=== PATIENT | female | born 2000 | race Two or more races ===

== ENCOUNTER → 2024-03-21 | Outpatient (CLI) | payer MEDICAID, SELFPAY ==
--- NOTE | 2024-03-21 09:00 | XR_ITS ---
Examination: Very minimal with KUB Fluoroscopy 19 spot fluoroscopic films of the colon Exam date and time: March 21, 2024 0947 hours INDICATIONS: Incomplete colonoscopy January 2024 TECHNIQUE AND FINDINGS: Stool is present in the colon on the preliminary film precluding double contrast study Colon filled in retrograde manner to the cecum with reflux into terminal ileum and appendix Haustral pattern unremarkable No constricting colonic lesion No rectal ulcerations Mucosal detail appears satisfactory on the postevacuation films IMPRESSION: No colonic lesion identified Fluoroscopy 0.30 minutes 19 spot fluoroscopic films
== END | disposition home or self-care (01) ==
PROVIDERS: PCP Registered Nurse; Referring Provider Internal Medicine Gastroenterology; Visit Provider Internal Medicine Gastroenterology
DX: K92.1 Melena (principal)
CPT/HCPCS: 74280

== ENCOUNTER 2024-05-19 10:01 | Emergency (ER) | payer MEDICAID, SELFPAY ==
[2024-05-19 10:11] VITALS: BP 120/77; PULSE 80; RESP 18; TEMP 37; O2SAT 97; BMI 23.6
--- NOTE | 2024-05-19 10:57 | PD.EDABDPN ---
ED Abdominal Pain RME/HPI General Chief Complaint: Abdominal Pain Stated complaint: Abdominal pain n/vomiting x 2d Time seen by provider: 05/19/24 10:57 Arrival date/time: 05/19/24 10:01 RME / HPI RME / HPI narrative: DR. MACIEL MAIN ED EVALUATION: 24 year old female presents to the Emergency Department with complaint of epigastric and left upper abdominal pain onset 3 weeks. Pain is described as sharp and rated mild to moderate. Associated symptoms include subjective fever yesterday but not today. Patient also reports nausea and vomiting today. Patient has been having chronic abdominal pain all 2023, she had an endoscopy and colonoscopy in 2023, which were negative. She also had a stool test and was diagnosed with H. Pylori. She also had a narrow esophagus and had an esophagus dilatation. She also had a cholecystectomy 12/2023 and since then she was better until 3 weeks ago with left-sided abdominal pain. Patient denies any tobacco, alcohol, or substance use. No marijuana use or energy drinks. Patient reports normal menses, last one was 05/09/2024 and normal. Related Data Allergies Allergy/AdvReac Type Severity Reaction Status Date / Time amoxicillin Allergy Intermediate Hives Verified 05/19/24 10:07 azithromycin Allergy Intermediate Hives Verified 05/19/24 10:07 fluconazole Allergy Intermediate blisters Verified 05/19/24 10:07 Review of Systems Review of Systems Systems Reviewed: All systems reviewed, normal except as documented Past Medical History Past Medical History CARDIAC: Negative Congestive Heart Failure RESPIRATORY: Positive Chronic Obstructive Pulmonary Disease (COPD) and Asthma GENITOURINARY: Negative Renal Disease ENDOCRINE: Negative Diabetes Mellitus Type 1 or Diabetes Mellitus Type 2 Social History SMOKING STATUS: Never smoker SUBSTANCE USE: does not use ALCOHOL: Never ED Exam Narrative Physical exam: GENERAL APPEARANCE: AxOx4, generally well-appearing, no acute distress. HEENT: NC, AT. MMM. EOMI, clear conjunctiva, oropharynx clear. NECK: Supple without lymphadenopathy. No stiffness or restricted ROM. HEART: Normal rate and regular rhythm, normal S1/S1, no m/r/g LUNGS: CTAB, moving air well. No crackles or wheezes are heard. ABDOMEN: There is some left upper and left mid abdomen pain and mild tenderness. Nondistended with good bowel sounds heard. BACK: No midline C/T/L spine pain or deformity, No CVAT, no obvious deformity. EXTREMITIES: Without cyanosis, clubbing or edema. MUSCULOSKELETAL: FROM of all major joints, no chest tenderness NEUROLOGICAL: Grossly nonfocal. Alert and oriented, moving all 4 extremities. CN not formally tested but appear grossly intact. Observed to ambulate with normal gait. Skin: Warm and dry without any rash. Course Quality Measures none Orders Category Date Time Status Lidocaine 2% Viscous [Xylocaine 2% Viscous] Med 05/19/24 10:57 Once 15 ml PO X1 ONE mg Hyd/Al Hyd/Louise Susp [Maalox Susp] Med 05/19/24 10:57 Once 30 ml PO X1 ONE Vital Signs Vital signs: Vital Signs Temperature 98.6 F 05/19/24 10:11 Pulse Rate 80 05/19/24 10:11 Respiratory Rate 18 05/19/24 10:11 Blood Pressure 120/77 05/19/24 10:11 Pulse Oximetry (%) 97 05/19/24 10:11 Oxygen Delivery Method Room Air 05/19/24 10:11 Abdominal Pain MDM MDM Narrative MDM Narrative:: IVika am scribing for and in the presence of Dr. Maciel. Patient data External records reviewed:: [facility] previous records (Reviewed last ED visit dated 10/16/19, discharged with the following: Acute upper respiratory infection) Clinical information provided by:: patient Social determinants that could affect healthcare access:: none Patient has the following chronic illnesses:: Chronic GI problems see HPI for details. How is presenting disease/condition affected by chronic disease/condition?: exacerbated by Evaluation data The following diagnostics were reviewed and interpreted by me:: other (specify) (none) Lab and/or radiology exams considered but not ordered:: none Interpretation Summary: n/a Medications / Prescriptions Medications or Prescriptions considered but not ordered:: none Medication administrations:: Medication Administration History Discontinued Medications Al Hydrox/Mg Hydrox/Simethicone (Mg Hyd/Al Hyd/Louise (Maalox Reg) Susp 30 Ml Udc) 30 ml PO X1 ONE Stop: 05/19/24 10:58 Lidocaine HCl (Lidocaine Viscous 2% 15 Ml Udc) 15 ml PO X1 ONE Stop: 05/19/24 10:58 see above Consultations Consultation(s) initiated? (list below): No Diagnosis Differential diagnosis abdominal pain: abdominal pain and other (GERD, gastritis, chronic abdominal pain) Most likely diagnosis given after review of the tests above:: Abdominal pain, chronic, epigastric Admission Indicated Admission indicated?: not indicated Admission Request Was there a request for admission?: No Disposition Plan Disposition Plan: Discharge Discharge Attestation Discharge Attestation: The patient and all family members were given an opportunity to ask questions and understood the discharge instructions. Discharge instructions specifically effects, indications for sooner follow up or return to the emergency department, and the expected course of current diagnosis. Patient condition: Stable Discharge Plan Plan Patient Disposition: HOME (Self Care) Problem List Clinical Impression: Abdominal pain, chronic, epigastric Patient/Caregiver Discharge Instructions Education Materials: ED Epigastric Pain (Uncertain Cause) Additional Instructions: You were given a gastritis treatment in emergency department. If this seems to help I recommend you go to the pharmacy to sweet pickled fruit maker some [id number] famotidine (Pepcid) 20 mg twice a day and plan to take it for the next 7 to 10 days straight. You can continue with your normal follow-up with your primary care doctor on Tuesday. Please eat a healthy diet avoiding greasy and sugary foods. Feel free return to the emergency department symptoms worsen or if you notice any new, concerning issues. Print Language: Slovak Stand Alone Forms: Carolyn Award Info., Patient Portal Info Letter
[2024-05-19] MEDS: LIDOCAINE VISCOUS 2% 15 ML UDC PO (11:47)
[2024-05-19] MEDS: MG HYD/AL HYD/SIME (Maalox Reg) SUSP 30 ML UDC PO (11:48)
[2024-05-19 12:00] VITALS: BP 133/86; PULSE 73; RESP 18; TEMP 37.1; O2SAT 98
== END 2024-05-19 12:06 | disposition home or self-care (01) ==
PROVIDERS: Emergency Provider Emergency Medicine; PCP Registered Nurse
DX: R10.13 Epigastric pain (principal)
CPT/HCPCS: 99282; J3490; A9270

== ENCOUNTER 2024-07-29 15:13 | Emergency (ER) | payer MEDICAID, SELFPAY ==
[2024-07-29 15:14] VITALS: BMI 23.8
[2024-07-29 15:24] VITALS: BP 134/76; PULSE 87; RESP 20; TEMP 37.1; O2SAT 99; BMI 23.6
--- NOTE | 2024-07-29 15:56 | EDNOTE_ITS ---
ED Asthma RME/HPI General Chief Complaint: Asthma Stated Complaint: COUGH WITH CHEST PAIN Time Seen by Provider: 07/29/24 15:33 Arrival date/time: 07/29/24 15:13 RME / HPI RME / HPI Narrative: 24-year-old female patient presents to the ED with a complaint of cough, shortness of breath, pain in her chest from coughing, runny nose and nasal congestion, sore throat from coughing, sinus pressure and drainage down the back of her throat. This has been an ongoing issue since her diagnosis with asthma. She was seen at [facility] and told she has allergies but not given any allergy medications. She is not trying any [id number]-[id number] medications. She has had some night sweats but no documented fever or chills. She denies nausea or vomiting. She denies ear pain. Related Data Previous Rx's ?Medication ?Instructions ?Recorded cetirizine 10 mg tablet (Zyrtec) 10 mg PO QDAY #30 tab s 07/29/24 fluticasone propionate 50 2 spray intranasal QDAY 30 d ays 07/29/24 mcg/actuation nasal #10 mL spray,suspension (Flonase Allergy Relief) montelukast 10 mg tablet 10 mg PO QPM #30 tabs (Singulair) Allergies Allergy/AdvReac Type Severity Reaction Status Date / Time amoxicillin Allergy Intermediate Hives Verified 07/29/24 15:16 azithromycin Allergy Intermediate Hives Verified 07/29/24 15:16 fluconazole Allergy Intermediate blisters Verified 07/29/24 15:16 Review of Systems Review of Systems Systems Reviewed: All systems reviewed, normal except as documented Past Medical History Past Medical History CARDIAC: Negative Congestive Heart Failure RESPIRATORY: Positive Chronic Obstructive Pulmonary Disease (COPD) and Asthma GENITOURINARY: Negative Renal Disease ENDOCRINE: Negative Diabetes Mellitus Type 1 or Diabetes Mellitus Type 2 Social History SMOKING STATUS: Never smoker SUBSTANCE USE: does not use ED Exam Narrative Physical exam: Alert and oriented, very pleasant 24-year-old female, no acute distress. No respiratory distress is noted. Regular rate and rhythm without murmurs, lungs reveal scattered wheezing throughout. No accessory muscle usage. Blood pressure 134/76, pulse 87, respirations 20 and nonlabored, temperature 98.7, O2 sat 99% on room air. Course Quality Measures none Vital Signs Vital signs: Vital Signs Temperature 98.7 F 07/29/24 15:24 Pulse Rate 87 07/29/24 15:24 Respiratory Rate 20 07/29/24 15:24 Blood Pressure 134/76 H 07/29/24 15:24 Pulse Oximetry (%) 99 07/29/24 15:24 Oxygen Delivery Method Room Air 07/29/24 15:24 Asthma Patient data External records reviewed:: None Clinical information provided by:: patient Social determinants that could affect healthcare access:: none Patient has the following chronic illnesses:: Asthma How is presenting disease/condition affected by chronic disease/condition?: exacerbated by Evaluation data The following diagnostics were reviewed and interpreted by me:: radiology exam(s) Lab and/or radiology exams considered but not ordered:: N/A Interpretation Summary: XR Chest: FINDINGS: Normal heart size. The lungs are clear. The osseous structures are intact. IMPRESSION: No active disease Medications / Prescriptions Medications or Prescriptions considered but not ordered:: N/A Medication administrations:: Decadron 10 mg p.o. and DuoNeb Consultations Consultation(s) initiated? (list below): No Diagnosis Differential diagnosis asthma: Acute exacerbation, Acute asthmatic bronchitis and Pneumonia Most likely diagnosis given after review of the tests above:: Acute asthma exacerbation Admission Indicated Admission indicated?: not indicated Explain why admission is indicated or not indicated:: Patient is stable for discharge. Admission Request Was there a request for admission?: No Disposition Plan Disposition Plan: Discharge Discharge Attestation Discharge Attestation: The patient and all family members were given an opportunity to ask questions and understood the discharge instructions. Discharge instructions specifically effects, indications for sooner follow up or return to the emergency department, and the expected course of current diagnosis. Patient condition: Stable Discharge Plan Plan Patient Disposition: HOME (Self Care) Discharge Disposition comment: Stable and improved Prescriptions/Referrals Prescriptions/Med Rec: New montelukast [Singulair] 10 mg tablet 10 mg PO QPM Qty: 30 0RF fluticasone propionate [Flonase Allergy Relief] 50 mcg/actuation spray,suspension 2 spray intranasal QDAY 30 Days Qty: 10 0RF Rx Instructions: administer into each nostril cetirizine [Zyrtec] 10 mg tablet 10 mg PO QDAY Qty: 30 0RF Referrals: No Primary/Family,Physician [Primary Care Provider] - In 1 week Problem List Clinical Impression: Asthma with acute exacerbation, Chronic rhinosinusitis Patient/Caregiver Discharge Instructions Education Materials: Understanding Asthma Triggers, ED Asthma, Acute (Adult), Asthma Additional Instructions: Follow-up with your primary care physician in 24 to 48 hours. Return to the ED for any new or worsening symptoms. Print Language: Chinese Stand Alone Forms: Carolyn Award Info., Patient Portal Info Letter PA/ECONOMIC DEVELOPMENT SPECIALIST Supervising Physician PA/ECONOMIC DEVELOPMENT SPECIALIST Supervising Physician: Dr. Ghosh
--- NOTE | 2024-07-29 15:59 | XR_ITS ---
Examination: PA lateral chest 2 views TECHNIQUE: Upright PA lateral chest 2 views Date and time: July 29, 2024 1629 hours INDICATIONS: Coughing and shortness of breath beginning 3 days ago FINDINGS: Normal heart size. The lungs are clear. The osseous structures are intact IMPRESSION: No active disease
[2024-07-29] MEDS: DEXAMETHASONE SOD PHOS INJ 10 MG/ML VIAL PO (16:10)
[2024-07-29] MEDS: ALBUTEROL/IPRATROPIUM (Duoneb) RT SOL 3 ML NEBU INH (16:13)
[2024-07-29 16:15] VITALS: PULSE 103; RESP 20; O2SAT 100
== END 2024-07-29 18:39 | disposition home or self-care (01) ==
PROVIDERS: Emergency Provider Emergency Medicine
DX: J45.901 Unspecified asthma with (acute) exacerbation (principal); J32.9 Chronic sinusitis, unspecified
CPT/HCPCS: 71046; 94640; 99283; A9270; J1100

== ENCOUNTER → 2024-08-27 | Outpatient (CLI) | payer MEDICAID, SELFPAY ==
--- NOTE | 2024-08-27 09:42 | XR_ITS ---
Examination: Esophagram standard Upright PA chest Upright soft tissue lateral neck single view Fluoroscopy 15 spot fluoroscopic films of the esophagus Date and time: August 27, 2024 1101 hours INDICATIONS: Difficulty swallowing beginning one year ago. TECHNIQUE AND FINDINGS: Upright PA chest normal heart size lungs are clear Soft tissue lateral neck no prevertebral soft tissue prominence Patient swallowed thin barium with primary peristaltic esophageal waves noted Minimal intermittent gastroesophageal reflux No constricting esophageal lesion IMPRESSION: Minimal gastroesophageal reflux Fluoroscopy 0.12 minute 15 spot fluoroscopic films
== END | disposition home or self-care (01) ==
PROVIDERS: PCP Registered Nurse; Referring Provider Registered Nurse; Visit Provider Registered Nurse
DX: K21.9 Gastro-esophageal reflux disease without esophagitis (principal)
CPT/HCPCS: 74220; A4649

== ENCOUNTER 2024-09-22 10:39 | Emergency (ER) | payer MEDICAID, SELFPAY ==
[2024-09-22 10:40] VITALS: BMI 22.5
[2024-09-22 10:46] VITALS: BP 118/73; PULSE 73; RESP 18; TEMP 37; O2SAT 97
[2024-09-22] MEDS: LIDOCAINE HCL 1% 20 ML VIAL INFL (11:04)
[2024-09-22] MEDS: DIPHTH,PERTUSS(ACELL),TET VAC 0.5 ML SYR- ADULT IMi (11:04)
--- NOTE | 2024-09-22 11:27 | EDNOTE_ITS ---
Upper Extremity Injury RME/HPI General Chief Complaint: Hand/Wrist Problems Stated Complaint: CUT TO LEFT INDEX FINGER TODAY Time Seen by Provider: 09/22/24 10:40 Arrival date/time: 09/22/24 10:39 24-year-old female presents the Emergency Department today stating that she was cutting a piece of sheet rock and accidentally cut her left index finger Limitations: no limitations Related Data Previous Rx's ?Medication ?Instructions ?Recorded cetirizine 10 mg tablet (Zyrtec) 10 mg PO QDAY #30 tab s 07/29/24 montelukast 10 mg tablet 10 mg PO QPM #30 tabs (Singulair) Allergies Allergy/AdvReac Type Severity Reaction Status Date / Time amoxicillin Allergy Severe Hives Verified 09/22/24 10:42 azithromycin Allergy Severe Hives Verified 09/22/24 10:42 fluconazole Allergy Severe blisters Verified 09/22/24 10:42 Review of Systems Review of Systems Systems Reviewed: All systems reviewed, normal except as documented Constitutional Constitutional: Reports system reviewed and no additional complaints, except as documented, Denies fever(s) and Denies headache(s) Eyes Eyes: Reports system reviewed and no additional complaints, except as documented and Denies blurry vision ENT Ears, Nose, Mouth, and Throat: Reports system reviewed and no additional complaints, except as documented, Denies headache(s), Denies nasal congestion and Denies nasal discharge Cardiovascular Cardiovascular: Reports system reviewed and no additional complaints, except as documented, Denies chest pain and Denies dyspnea Respiratory Respiratory: Reports system reviewed and no additional complaints, except as documented, Denies chest congestion, Denies cough and Denies dyspnea Gastrointestinal Gastrointestinal: Reports system reviewed and no additional complaints, except as documented and Denies abdominal pain Integumentary/Breasts Skin/Breast: Reports system reviewed and no additional complaints, except as documented, Denies rash and Reports wounds (Laceration left index finger) Neurologic Neurologic: Reports system reviewed and no additional complaints, except as documented, Reports as per HPI and Denies headache(s) Past Medical History Past Medical History CARDIAC: Negative Congestive Heart Failure RESPIRATORY: Positive Chronic Obstructive Pulmonary Disease (COPD) and Asthma GENITOURINARY: Negative Renal Disease ENDOCRINE: Negative Diabetes Mellitus Type 1 or Diabetes Mellitus Type 2 Social History SMOKING STATUS: Never smoker SUBSTANCE USE: does not use ED Exam General Limitations: Present no limitations General appearance: Present alert and in no apparent distress Head Head exam: Present atraumatic Eye Eye exam: Present normal appearance, PERRL and EOMI ENT ENT exam: Present normal exam, normal oropharynx and mucous membranes moist Neck Neck exam: Present normal inspection, full ROM and trachea midline Chest Chest inspection: Present normal inspection and symmetric chest wall rise Respiratory Respiratory exam: Present normal lung sounds bilaterally Cardiovascular Cardiovascular exam: Present regular rate, normal rhythm and normal heart sounds Abdominal Exam Abdominal exam: Present soft and normal bowel sounds Extremities Exam Extremities exam: Present full ROM, tenderness, normal capillary refill and other (Laceration of theYour) Back Exam Back exam: Present normal inspection and full ROM Neurological Exam Neurological exam: Present alert, oriented X3 and CN II-XII intact Psychiatric Psychiatric exam: Present normal affect and normal mood Skin Skin exam: Present warm, dry and other (Laceration left index finger) Course Quality Measures none Orders Category Date Time Status Set Up Suture Tray STAT Care 09/22/24 10:55 Completed Wound Care NOW Care 09/22/24 10:55 Completed Lidocaine 1% 20 ml [Xylocaine 1% 20 ML] Med 09/22/24 10:55 Discontinued 20 ml INFL X1 ONE TET,DIP/PERT AC (Adult)-Tdap [Boostrix Adult (Tdap) Med 09/22/24 10:55 Discontinued Vacc] 0.5 ml IMI .ONCE ONE Vital Signs Vital signs: Vital Signs Temperature 98.6 F 09/22/24 10:46 Pulse Rate 73 09/22/24 10:46 Respiratory Rate 18 09/22/24 10:46 Blood Pressure 118/73 09/22/24 10:46 Pulse Oximetry (%) 97 09/22/24 10:46 Oxygen Delivery Method Room Air 09/22/24 10:46 O2 saturation 97% room air with normal limits PROCEDURES: Laceration Laceration 1: Site: hand Side (If applicable): left Size (cm): 2 Description: linear Depth: simple, single layer Amount of anesthesia used (mL): 0 Pre-repair: wound explored Skin layer closed with: nylon Suture size (cm): 5-0 Number of sutures: 1 Technique: simple, interrupted Extremity Injury MDM Narrative MDM Narrative:: 24-year-old female presents the Emergency Department today stating that she was cutting a piece of sheet rock and accidentally cut her left index finger On exam patient well-appearing patient does not appear ill or toxic no acute distress Wound irrigated copiously laceration repaired with 1 suture Patient has a superficial laceration distal aspect of left index finger No evidence of tendon ligamentous injury Patient discharged home in no distress to follow-up with primary care doctor in the next 24 to 48 hours and for any worsening symptoms to return to the ER immediately Patient data External records reviewed:: [facility] previous records Clinical information provided by:: patient Social determinants that could affect healthcare access:: none Patient has the following chronic illnesses:: None How is presenting disease/condition affected by chronic disease/condition?: no chronic disease Evaluation data The following diagnostics were reviewed and interpreted by me:: other (specify) Lab and/or radiology exams considered but not ordered:: Consider not ordered Interpretation Summary: N/A Medications / Prescriptions Medications or Prescriptions considered but not ordered:: Given Medication administrations:: Medication Administration History Discontinued Medications Diphtheria/Tetanus/Acell Pertussis (Diphth,Pertuss(Acell),Tet Vac 0.5 Ml Syr- Adult) 0.5 ml IMi .ONCE ONE Stop: 09/22/24 10:56 Last Admin: 09/22/24 11:04 Dose: 0.5 ml Documented By: RINA Lidocaine HCl (Lidocaine Hcl 1% 20 Ml Vial) 20 ml INFL X1 ONE Stop: 09/22/24 10:56 Last Admin: 09/22/24 11:04 Dose: 20 ml Documented By: RINA Given Consultations Consultation(s) initiated? (list below): No Diagnosis Upper Extremity Injury Differential Diagnosis: other Most likely diagnosis given after review of the tests above:: Laceration Admission Indicated Admission indicated?: not indicated Admission Request Was there a request for admission?: No Disposition Plan Disposition Plan: Discharge Discharge Attestation Discharge Attestation: The patient and all family members were given an opportunity to ask questions and understood the discharge instructions. Discharge instructions specifically effects, indications for sooner follow up or return to the emergency department, and the expected course of current diagnosis. Patient condition: Stable Discharge Plan Plan Patient Disposition: HOME (Self Care) Discharge Disposition comment: Stable Prescriptions/Referrals Prescriptions/Med Rec: No Action montelukast [Singulair] 10 mg tablet 10 mg PO QPM Qty: 30 0RF cetirizine [Zyrtec] 10 mg tablet 10 mg PO QDAY Qty: 30 0RF Problem List Clinical Impression: Laceration of index finger Patient/Caregiver Discharge Instructions Education Materials: ED Laceration: All Closures Additional Instructions: Please follow up with your primary care doctor in the next 24-48hrs for any worsening symptoms return here immediately Please have suture removed in 10 days Print Language: Swiss Stand Alone Forms: Carolyn Award Info., Patient Portal Info Letter Vaccines Vaccines Given During Stay: TDaP PA/CABLE SYSTEMS INSTALLER Supervising Physician PA/CABLE SYSTEMS INSTALLER Supervising Physician: Dr. payne
== END 2024-09-22 11:41 | disposition home or self-care (01) ==
PROVIDERS: Emergency Provider Emergency Medicine; PCP Registered Nurse
DX: S61.211A Laceration without foreign body of left index finger without damage to nail, initial encounter (principal); W26.9XXA Contact with unspecified sharp object(s), initial encounter; Z23 Encounter for immunization
CPT/HCPCS: 12002; 90471; 90715; 99284; J3490

== ENCOUNTER 2024-10-02 09:56 | Emergency (ER) | payer MEDICAID, SELFPAY ==
[2024-10-02 09:57] VITALS: BMI 22.5
[2024-10-02 10:10] VITALS: BP 127/75; PULSE 62; RESP 18; TEMP 36.4; O2SAT 98
--- NOTE | 2024-10-02 10:30 | EDNOTE_ITS ---
<Statement entered by Libertad Patel MD - 10/02/24 12:11> As co-signing physician, I was present and available for consult prn. I concur with the plan and care as documented by the midlevel provider. ED General RME/HPI General Chief complaint: General Adult/Misc Complain Stated complaint: STITCH REMOVAL L) INDEX FINGER Time Seen by Provider: 10/02/24 10:16 Source: patient Arrival date/time: 10/02/24 09:56 Mode of arrival: ambulatory Limitations: no limitations RME / HPI RME / HPI narrative: Requesting suture removal from the left index finger has been in place x 10 days. Onset (ago): day(s) (10 DAYS) Location: left (Index finger) Severity: mild Related Data Previous Rx's ?Medication ?Instructions ?Recorded cetirizine 10 mg tablet (Zyrtec) 10 mg PO QDAY #30 tab s 07/29/24 montelukast 10 mg tablet 10 mg PO QPM #30 tabs (Singulair) Allergies Allergy/AdvReac Type Severity Reaction Status Date / Time amoxicillin Allergy Severe Hives Verified 10/02/24 09:58 azithromycin Allergy Severe Hives Verified 10/02/24 09:58 fluconazole Allergy Severe blisters Verified 10/02/24 09:58 Review of Systems Constitutional Constitutional: Reports system reviewed and no additional complaints, except as documented Eyes Eyes: Reports system reviewed and no additional complaints, except as documented, Denies dry eyes, Denies exophthalmos and Reports floaters Cardiovascular Cardiovascular: Denies chest pain with activity and Denies claudication ED Exam Narrative Physical exam: There is [address] left index finger, the wound appears to be healing well and there is no apparent signs of infection. Patient retains full range of motion of her left index finger. General Limitations: Present no limitations General appearance: Present alert and in no apparent distress Head Head exam: Present atraumatic ENT ENT exam: Present normal exam Neck Neck exam: Present normal inspection and full ROM Extremities Exam Extremities exam: Present full ROM and other (Left index finger has a suture in place. There does not appear to be any infectious process present.) Back Exam Back exam: Present normal inspection and full ROM Neurological Exam Neurological exam: Present alert and oriented X3 Psychiatric Psychiatric exam: Present normal affect and normal mood Skin Skin exam: Present warm, dry, intact and normal color Course Course Course Narrative: Patient will have the suture removed from her left index finger. Quality Measures none (NA) Orders NA Vital Signs Vital signs: Vital Signs Temperature 97.5 F 10/02/24 10:10 Pulse Rate 62 10/02/24 10:10 Respiratory Rate 18 10/02/24 10:10 Blood Pressure 127/75 10/02/24 10:10 Pulse Oximetry (%) 98 10/02/24 10:10 Oxygen Delivery Method Room Air 10/02/24 10:10 Pulse ox room air is 98% Discharge Plan Plan Patient Disposition: HOME (Self Care) Discharge Disposition comment: Discharge no apparent distress Patient condition on transfer: Stable Prescriptions/Referrals Prescriptions/Med Rec: No Action montelukast [Singulair] 10 mg tablet 10 mg PO QPM Qty: 30 0RF cetirizine [Zyrtec] 10 mg tablet 10 mg PO QDAY Qty: 30 0RF Problem List Clinical Impression: Encounter for removal of sutures Impression comment: Suture removal Patient/Caregiver Discharge Instructions Discharge Activity: activity as tolerated Education Materials: ED Stitches/Staple Removal No ... Print Language: Ivorian Stand Alone Forms: Carolyn Award Info., Patient Portal Info Letter PA/POWER SYSTEM OPERATOR Supervising Physician PA/POWER SYSTEM OPERATOR Supervising Physician: CLYDE QUINONES Narrative Sign out note: NA [facility] hospital course: 1 suture to be removed. The wound will be dressed with a Band-Aid. Patient will be discharged in no apparent distress. Procedures done or offered: Suture removal Clinical Information Provided by patient Medical Records Reviewed None NA Meds/Rx Considered, not Ordered Describe details: NA Labs/Rad/Tests considered, not Ordered None Chronic Illness/Social Conditions which may negatively complicate care or outcome(s)-explain: None or not applicable EKG EKG not done Lab Interpretation Labs: none Imaging Imaging interpretation: none Medication Administration(s) none Dispositon Disposition: Discharge Home
== END 2024-10-02 10:58 | disposition home or self-care (01) ==
LOC: SERX 10:39
PROVIDERS: Emergency Provider Emergency Medicine; PCP Registered Nurse
DX: S61.211D Laceration without foreign body of left index finger without damage to nail, subsequent encounter (principal); X58.XXXD Exposure to other specified factors, subsequent encounter
CPT/HCPCS: 99282